=== PATIENT | male | born 1970 | race African-American/Black ===

== ENCOUNTER 2024-03-05 07:45 | Emergency (ER) | payer OTHER, SELFPAY ==
[2024-03-05] VITALS (7 sets, daily range): BP systolic 121–128; BP diastolic 78–88; PULSE 62; RESP 18; TEMP 36.6; O2SAT 97–100
--- NOTE | ~2024-03-05 | US_ITS ---
EXAMINATION:US venous doppler LE RT INDICATION:History of DVT. Patient on blood thinners. Right lower extremity edema. TECHNIQUE: Multiple grayscale, color flow and Doppler images of the right lower extremity deep venous systems were obtained and reviewed. COMPARISON:No prior studies for comparison. FINDINGS: There is deep venous thrombosis of the right femoral and posterior tibial veins. The remain mike of the right lower extremity veins demonstrate normal flow, compressibility and augmentation. Not e is made of mildly enlarged right inguinal lymph nodes. IMPRESSION: 1: Deep venous thrombosis of the right femoral and posterior tibial veins. Reviewed, dictated and finalized at location B.
--- NOTE | 2024-03-05 08:03 | ED.GENADULT ---
HPI - General Adult General Chief complaint: Skin/Abscess/Foreign Body Stated complaint: paint r/t ?DVT in RLE Time Seen by Provider: 03/05/24 07:54 History of Present Illness HPI narrative: Patient is a 53-year-old male who presents ER with concerns regarding an ulcer to the medial aspect of his right leg. It is near the medial malleolus. 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 He will occasionally get ulcerations that take months to heal due to the lack of circulation. He has developed a new 1 in the last week since he has been off of his Xarelto. He ran out because he has moved here from [place] and is establishing care on 03/20/2024. No chest pain or shortness of breath. No redness to the leg. He is unsure if there is any increased swelling. When he had been in the [place] area previously he received his care at [facility]. Related Data Allergies Allergy/AdvReac Type Severity Reaction Status Date / Time No Known Allergies Allergy Verified 03/05/24 07:50 Review of Systems Review of Systems: All systems reviewed & are unremarkable except as noted in HPI and below Constitutional: Constitutional: Reports no additional constitutional complaints Cardiovascular: Cardiovascular: Reports no additional cardiovascular complaints Respiratory: Respiratory: Reports no additional respiratory complaints Musculoskeletal: Musculoskeletal: Reports no additional musculoskeletal complaints Integumentary/Breasts: Skin/Breast: Denies erythema, Denies rash and Reports skin ulcer PMFSH Past Medical History Medical History (Updated 03/05/24 @ 09:22 by Mark Ambrose MD) DVT (deep venous thrombosis) Exam Narrative: GENERAL: Well-appearing, well-nourished, and in no acute distress. HEAD: Normocephalic, atraumatic. ENT: Mucous membranes moist. NECK: Supple. CHEST: Clear to auscultation. No respiratory distress. HEART: Regular rate and rhythm. Normal peripheral pulses. EXTREMITIES: Normal range of motion. No edema. Chronic venous stasis changes RLE medially. SKIN: Warm, dry, 2cm x 1cm ulceration proximal to medial malleolus. NEURO: Alert and oriented x3. PSYCH: Normal mood and affect. Course Course Emergency Course: Imaging with DVT. Wave patient describes it this is felt to be chronic. Will be placed back on Xarelto. He has follow-up with his PCP on 03/20. Will also be placed on a antibiotic for ulceration pacers developing infection. No obvious purulence drainage. Vital Signs Vital signs: Vital Signs Temperature 97.8 F 03/05/24 07:47 Pulse Rate 62 03/05/24 07:47 Respiratory Rate 18 03/05/24 07:47 Blood Pressure 128/87 03/05/24 07:47 Pulse Oximetry 100 03/05/24 07:47 Oxygen Delivery Room Air 03/05/24 07:47 Temperature 97.8 F 03/05/24 07:47 Pulse Rate 62 03/05/24 07:47 Respiratory Rate 18 03/05/24 07:47 Blood Pressure 126/88 03/05/24 09:01 Pulse Oximetry 98 03/05/24 09:01 Oxygen Delivery Room Air 03/05/24 07:47 Medical Decision Making Vital Signs Vital Signs: Vital Signs Temperature 97.8 F 03/05/24 07:47 Pulse Rate 62 03/05/24 07:47 Respiratory Rate 18 03/05/24 07:47 Blood Pressure 128/87 03/05/24 07:47 Pulse Oximetry 100 03/05/24 07:47 Oxygen Delivery Room Air 03/05/24 07:47 Temperature 97.8 F 03/05/24 07:47 Pulse Rate 62 03/05/24 07:47 Respiratory Rate 18 03/05/24 07:47 Blood Pressure 126/88 03/05/24 09:01 Pulse Oximetry 98 03/05/24 09:01 Oxygen Delivery Room Air 03/05/24 07:47 Lab Data Lab results reviewed: Yes I reviewed the patient's lab results. 03/05/24 08:04 03/05/24 08:04 Labs: Lab Results 03/05/24 Range/Units 08:04 WBC 5.1 (4.5-10.0) K/mm3 RBC 5.14 (4.6-6.20) M/mm3 Hgb 15.1 (14.0-18.0) g/dL Hct 45.0 (42.0-52.0) % MCV 87.5 (80-100) fl MCH 29.4 (26-34) pg MCHC 33.6
[2024-03-05 08:16] LABS: Basophils Percent Auto 0.6 % (0.2-1.2); Eosinophils Absolute Auto 0.4 K/mm3 (0-0.3); Hemoglobin 15.1 g/dL (14.0-18.0); Immature Granulocyte Absolute 0.01 K/mm3 (0.00-0.031); Immature Granulocyte Percent A 0.2 % (0-0.5); Lymphocytes Absolute Auto 1.27 K/mm3 (0.9-3.2); Lymphocytes Percent Auto 24.8 % (18.3-44.2); Mean Corpuscular HGB Conc 33.6 g/dl (32-36); Mean Corpuscular Hemoglobin 29.4 pg (26-34); Mean Corpuscular Volume 87.5 fl (80-100); Mean Platelet Volume 9.7 fl (7.4-10.4); Monocytes Absolute Auto 0.4 K/mm3 (0.1-0.6); Monocytes Percent Auto 8.4 % (2.6-8.5); Platelet Count Result 225 k/mm3 (150-375); Red Blood Count 5.14 M/mm3 (4.6-6.20); Red Cell Distribution Width 12.7 % (11.5-14.5); White Blood Count 5.1 K/mm3 (4.5-10.0)
[2024-03-05 08:26] LABS: Alanine Aminotransferase 25 U/L (6-50); Albumin Level 4.5 g/dL (3.5-5.1); Alkaline Phosphatase 84 U/L (38-126); Anion Gap 6 mmol/L (4-12); Aspartate Amino Transferase 28 U/L (17-59); Blood Urea Nitrogen 17 mg/dL (9-20); Calcium 9.3 mg/dL (8.4-10.2); Carbon Dioxide 31 mmol/L (22-30); Chloride 105 mmol/L (98-107); Estimated CRCL calculation 65 ml/min; Estimated Glomerular Filt Rate > 60; Glucose 105 mg/dL (65-110); Sodium 142 mmol/L (137-145)
[2024-03-05 08:34] LABS: INR 1.3; Prothrombin Time 16.5 Seconds (11.1-14.7)
[2024-03-05 08:35] LABS: Partial Thromboplastin Time 32.4 Seconds (22.3-36.8)
== END 2024-03-05 09:37 | disposition home or self-care (01) ==
PROVIDERS: Emergency Provider Emergency Medicine
DX: I82.411 Acute embolism and thrombosis of right femoral vein (principal); I82.441 Acute embolism and thrombosis of right tibial vein; I83.018 Varicose veins of right lower extremity with ulcer other part of lower leg; L97.819 Non-pressure chronic ulcer of other part of right lower leg with unspecified severity
CPT/HCPCS: 36415; 80053; 85025; 85610; 85730; 93971; 99284

== ENCOUNTER 2024-07-27 10:07 | Emergency (ER) | payer OTHER, SELFPAY ==
--- NOTE | ~2024-07-27 | XR_ITS ---
EXAMINATION: XR chest 2V DATE: 07/27/2024 11:01 INDICATION: Cough. Chest pain. TECHNIQUE: Frontal and lateral views of the chest were obtained. COMPARISON: None. FINDINGS: There is no pneumonia, pleural effusion, or pneumothorax. The heart size is normal. There i s mild chronic anterior wedging of multiple mid thoracic vertebral bodies. IMPRESSION: 1. No acute cardiopulmonary disease. Reviewed, dictated and finalized at location A.
[2024-07-27 10:10] VITALS: BP 142/85; PULSE 86; RESP 20; TEMP 36.7; O2SAT 99
--- NOTE | 2024-07-27 10:38 | ED_ITS ---
HPI - URI/Sore Throat General Chief Complaint: Upper Respiratory Infection Stated Complaint: productive cough, fatigued x1 day Time Seen by Provider: 07/27/24 10:22 Source: patient Mode of arrival: ambulatory Limitations: no limitations History of Present Illness HPI Narrative: This is a 53-year-old male, with history of DVT on Xarelto, who presents emergency department complaining of nonbloody productive cough, fatigue, chest soreness with cough and myalgias beginning yesterday. The patient denies any known sick contacts or recent travel. He has no other complaints at this time. Related Data Allergies Allergy/AdvReac Type Severity Reaction Status Date / Time No Known Allergies Allergy Verified 07/27/24 10:08 Review of Systems Review of Systems: All systems reviewed & are unremarkable except as noted in HPI and below PMFSH Past Medical History Medical History DVT (deep venous thrombosis) Surgical History Surgical History No significant past surgical history Social History Social History Smoking status: Never smoker Alcohol intake: never Substance use: never Exam Narrative: GENERAL: Well-developed, well-nourished, and in no acute distress. HEAD: Normocephalic, atraumatic. EYES: PERRLA and EOMI. ENT: Nares clear, no rhinorrhea or epistaxis. Mucous membranes moist. Oropharynx without tonsillar hypertrophy exudate or other lesions. CHEST: Faint rales noted in the bilateral posterior, inferior lung gibson. No respiratory distress. No wheezes or rhonchi HEART: Regular rate and rhythm. No murmur heard. Normal peripheral pulses. ABDOMEN: Soft, nontender, nondistended, normal active bowel sounds. EXTREMITIES: Normal range of motion. No edema. SKIN: Warm, dry, no rash. NEURO: Alert and oriented x3. No focal deficit. Moving all 4 limbs spontaneously PSYCH: Normal mood and affect. Course Course Emergency Course: 11:52 - Chest x-ray not concerning for pneumonia. The patient tested negative for COVID, influenza and RSV. Will discharge with recommendation for symp tomatic management and primary care follow-up. I discussed the findings and recommendations with the patient. Discussed return and emergency precautions including signs/symptoms of ACS in respiratory distress. The patient voiced understanding and agreement with the plan. All questions answered to his satisfaction. Vital Signs Vital signs: Vital Signs Temperature 98.1 F 07/27/24 10:10 Pulse Rate 86 07/27/24 10:10 Respiratory Rate 20 07/27/24 10:10 Blood Pressure 142/85 H 07/27/24 10:10 Pulse Oximetry 99 07/27/24 10:10 Oxygen Delivery Room Air 07/27/24 10:10 Temperature 98.1 F 07/27/24 10:10 Pulse Rate 86 07/27/24 10:10 Respiratory Rate 20 07/27/24 10:10 Blood Pressure 142/85 H 07/27/24 10:10 Pulse Oximetry 99 07/27/24 10:10 Oxygen Delivery Room Air 07/27/24 10:10 MDM - URI/Sore Throat MDM Narrative Medical decision making narrative: Plan: Imaging, labs, reassess Differential Diagnosis Differential diagnosis: Likely upper respiratory infection, viral infection, bronchitis, influenza and other (COVID, RSV, pneumonia, other) Discharge Plan Discharge Clinical Impression: Upper respiratory infection, Cough, Acute chest wall pain Patient Disposition: Home, Self-Care Condition: Stable Instructions: Antibiotic Form, Upper Respiratory Infection (ED) Additional Instructions: You were seen in the emergency department. You tested negative for influenza, RSV and COVID. A chest x-ray was not concerning for pneumonia. I ordered 6 suspect a viral infection. I recommend decongestants, Tylenol/ibuprofen as needed for pain, plenty fluids and rest. If you develop new or worsening chest pain, shortness of breath, loss of consciousness, or if you have other emergent concerns for life, limb, or eyesight, return to the emergency department. Patient Language: Kiswahili Prescriptions: New guaifenesin [Mucinex] 1,200 mg tablet extended release 12hr 1,200 mg PO Q12H Qty: 10 0RF pseudoephedrine HCl 30 mg tablet 30 mg PO Q6H PRN (Reason: nasal congestion) 3 Days Qty: 12 0RF Rx Instructions: DNExceed 4 doses/24h benzonatate 200 mg capsule 200 mg PO BID PRN (Reason: cough) Qty: 6 0RF No Action Xarelto DVT-PE Treat 30d Start 15 mg (42)- 20 mg (9) tablets,dose pack See Rx Instructions .ROUTE .COMPLEX Qty: 51 0RF Rx Instructions: take one-15 mg tablet twice daily for 21 days, then one-20 mg tablet once daily; must take with meal/food cefuroxime axetil 500 mg tablet 500 mg PO BID Qty: 20 0RF Follow-up/Referrals: Alejandro,BETY TamP [Primary Care Provider] - 2 Weeks Stand Alone Forms: Work/School Release IP Time of Disposition: 11:57
[2024-07-27 11:25] LABS: Influenza A QL RT-PCR Negative (Negative); Influenza B QL RT-PCR Negative (Negative); RSV RNA, RT-PCR Negative (Negative); SARS-CoV-2 RNA PCR Negative (Negative)
== END 2024-07-27 12:04 | disposition home or self-care (01) ==
PROVIDERS: Emergency Provider Preventive Medicine Aerospace Medicine; PCP Nurse Practitioner Family
DX: J06.9 Acute upper respiratory infection, unspecified (principal); R07.89 Other chest pain; Z86.718 Personal history of other venous thrombosis and embolism; Z79.01 Long term (current) use of anticoagulants; Z20.822 Contact with and (suspected) exposure to COVID-19
CPT/HCPCS: 71046; 87637; 99283